=== PATIENT | female | born 1975 | race Caucasian/White ===

== ENCOUNTER 2023-12-26 11:08 | Outpatient (CLI) | payer OTHER, SELFPAY ==
[2023-12-26 16:24] LABS: Hematocrit 33.9 % (37.0-47.0); Hemoglobin 8.9 g/dL (12.0-15.0); Mean Corpuscular HGB Conc 26.3 g/dl (32-36); Mean Corpuscular Volume 72.3 fl (80-100); Mean Platelet Volume 9.8 fl (7.4-10.4); Platelet Count Result 370 k/mm3 (150-375); Red Blood Count 4.69 M/mm3 (4.2-5.4); Red Cell Distribution Width 19.3 % (11.5-14.5)
[2023-12-26 17:47] LABS: Alanine Aminotransferase 21 U/L (6-35); Albumin Level 4.1 g/dL (3.5-5.1); Alkaline Phosphatase 86 U/L (38-126); Anion Gap 8 mmol/L (8-16); Aspartate Amino Transferase 30 U/L (14-36); Bilirubin,Total 0.3 mg/dL (0.2-1.3); Blood Urea Nitrogen 19 mg/dL (7-17); Calcium 9.6 mg/dL (8.4-10.2); Carbon Dioxide 24 mmol/L (22-30); Chloride 106 mmol/L (98-107); Cholesterol 168 mg/dL (0-200); Estimated Glomerular Filt Rate > 60; Glucose 125 mg/dL (65-110); HDL Direct 51 mg/dL; Potassium 4.4 mmol/L (3.4-5.0); Sodium 138 mmol/L (137-145); Triglycerides 102 mg/dL (<150)
[2023-12-26 17:59] LABS: LDL Cholesterol Direct 91 mg/dL
[2023-12-26 18:22] LABS: Hemoglobin A1C 9.2 % (<5.7)
== END 2023-12-26 11:09 | disposition home or self-care (01) ==
LOC: ANHGOSHLAB 11:10
PROVIDERS: PCP Family Medicine; Visit Provider Family Medicine
DX: E11.8 Type 2 diabetes mellitus with unspecified complications (principal); E66.01 Morbid (severe) obesity due to excess calories; E78.5 Hyperlipidemia, unspecified; I10 Essential (primary) hypertension
CPT/HCPCS: 36415; 80053; 80061; 83036; 84443; 85027

== ENCOUNTER 2023-12-27 11:32 | Outpatient (CLI) | payer OTHER, SELFPAY ==
[2023-12-27 18:43] LABS: Basophils Absolute Auto 0.1 K/mm3 (0.0-0.1); Basophils Percent Auto 0.7 % (0.2-1.2); Eosinophils Absolute Auto 0.1 K/mm3 (0-0.3); Eosinophils Percent Auto 0.8 % (0-4.4); Hematocrit 33.7 % (37.0-47.0); Immature Granulocyte Absolute 0.03 K/mm3 (0.00-0.031); Immature Granulocyte Percent A 0.3 % (0-0.5); Lymphocytes Absolute Auto 1.92 K/mm3 (0.9-3.2); Lymphocytes Percent Auto 21.8 % (18.3-44.2); Mean Corpuscular HGB Conc 26.7 g/dl (32-36); Mean Corpuscular Hemoglobin 19.3 pg (26-34); Mean Corpuscular Volume 72.2 fl (80-100); Mean Platelet Volume 9.4 fl (7.4-10.4); Monocytes Absolute Auto 0.6 K/mm3 (0.1-0.6); Monocytes Percent Auto 6.8 % (2.6-8.5); Neutrophils Absolute Auto 6.1 K/mm3 (1.3-6.7); Neutrophils Percent Auto 69.6 % (45.5-73.1); Platelet Count Result 373 k/mm3 (150-375); Red Blood Count 4.67 M/mm3 (4.2-5.4); Red Cell Distribution Width 19.4 % (11.5-14.5); White Blood Count 8.8 K/mm3 (4.5-10.0)
[2023-12-27 19:09] LABS: Anisocytosis 1+ (NORMAL); Hypochromasia 1+ (NORMAL); Macrocytosis 1+ (NORMAL); Platelet Estimate Adequate (Adequate); Schistocytes None Seen (NORMAL)
[2023-12-27 19:33] LABS: Iron 35 ug/dL (37-170)
[2023-12-27 19:42] LABS: Percent Iron Saturation 7 % (20-50)
[2023-12-27 20:09] LABS: Ferritin 4.59 ng/mL (6.24-137)
== END 2023-12-27 11:33 | disposition home or self-care (01) ==
LOC: ANHGOSHLAB 11:35
PROVIDERS: PCP Family Medicine; Visit Provider Family Medicine
DX: D64.9 Anemia, unspecified (principal)
CPT/HCPCS: 36415; 82728; 83540; 83550; 85025

== ENCOUNTER 2024-03-05 00:41 | Day surgery (SDC) | payer OTHER, SELFPAY ==
[2024-02-16 11:08] VITALS: BMI 53.5
[2024-03-05 09:36] VITALS: BP 167/107; PULSE 102; RESP 18; TEMP 36.1; O2SAT 100
[2024-03-05] MEDS: LACTATED RINGERS 1,000 ML 150 ML IV CONT (09:54)
[2024-03-05 09:55] LABS: Glucose Point of Care 168 mg/dl (65-105)
--- NOTE | 2024-03-05 10:13 | WPDANESEPPF ---
Anes - Initial Pre Proc Eval Procedure: Operation Date: 03/05/24 11:00 Proposed Procedures p Screening Colonoscopy - Augustine Michaud MD Date/Time: 03/05/24 10:13 Surgeon: Augustine Michaud MD Pre Op Diagnosis: neoplasm screening Patient Data Age: 48 Gender: F Height: 1.7 m Weight: 153.2 kg Last Vital Signs Temp 36.1 C L 03/05/24 09:36 Pulse 102 H 03/05/24 09:36 Resp 18 03/05/24 09:36 BP 167/107 H 03/05/24 09:36 Pulse Ox 100 03/05/24 09:36 O2 Del Method Room Air 03/05/24 09:36 Allergies Allergy/AdvReac Type Severity Reaction Status Date / Time Penicillins Allergy Severe Anaphylactic Verified 03/05/24 09:35 Shock Home Medications Medication Instructions Recorded Confirmed Type metformin 1,000 mg tablet 1,000 mg PO BIDWMEAL 11/04/22 02/16/24 History glipizide 10 mg tablet 20 mg PO BID 11/15/22 02/16/24 History ferrous sulfate 325 mg (65 mg 325 mg PO BID #180 tabs 12/27/23 02/16/24 Rx iron) tablet insulin glargine 100 unit/mL 35 unit subcut QPM 02/06/24 02/16/24 History subcutaneous solution (Lantus U-100 Insulin) lisinopril 10 mg tablet 10 mg PO DAILY #90 tabs 02/06/24 02/16/24 Rx tirzepatide 5 mg/0.5 mL See Rx Instructions .Route 02/07/24 02/16/24 Rx subcutaneous pen injector .COMPLEX #4 mL (Mounjaro) Laboratory Tests 03/05/24 09:51 POC Capillary Glucose 168 H mg/dl (65-105) Patient hx anesthesia problems: post op nausea/vomiting Family hx anesthesia problems: none Results Review: All pre-operative results and documents have been reviewed as part of the pre-operative evaluation. [facility] Past Medical History Medical History Essential (primary) hypertension Hyperlipidemia, unspecified Morbid obesity Type 2 diabetes mellitus with unspecified complications Surgical History Surgical History H/O tubal ligation History of x2 elective and 1 emergency History of salpingectomy History of tonsillectomy Hx of appendectomy Family History Family History Father Malignant neoplasm of prostate Bone cancer Mother Diabetes mellitus Hypertension Depression Son Diabetes mellitus Celiac disease Grandparent Breast cancer Social History Social History Smoking packs per day: 1 Smoking cigarettes per day: 20.0 Years smoked: 25 Smoking pack-years: 25.00 Smoking status: Former smoker Tobacco type: e-cigarettes/vaping Additional smoking assessment comments: Currently vapes Alcohol intake: never Substance use: never Do You Feel Safe in your Home?: Yes Lack of Transportation: No Lack of Food: Never True Current Housing: I Have Housing Concerned About Future Housing: No Difficulty Paying Gas/Electric Bills: No Difficulty Paying for Meds: No Currently Unemployed: No Education: Associate Degree Difficulty w/ Childcare or Family Care: No Living arrangements: with family Spiritual care concerns: No Anes - Eval Final PreProcedure Day of Procedure 03/05/24 10:13 Patient weight: super morbidly obese Heart: regular rate and rhythm Lungs: decreased breath sounds Airway: Mallampati scale class II Neurological: alert and oriented Last oral intake: >/= 8 hours ASA classification: III Emergent: no Anesthetic plan: proceed Anesthesia type and monitoring: general GIVS and standard monitoring Results Review: All pre-operative results and documents have been reviewed as part of the pre-operative evaluation. Informed Consent: The patient's anesthetic plan and its attendant risks and benefits were discussed with the patient/family/POA. Questions were solicited and answers provided to the satisfaction of the patient/family/POA.
--- NOTE | 2024-03-05 11:04 | PM.HPGS ---
History of Present Illness History of Present Illness Consent: Risks, benefits, and alternatives have been discussed and questions answered. Patient agrees to proceed with procedure. Chief complaint: neoplasm screening Narrative: Madalyn Monson is a 48 year old female here for first screening colonoscopy Review of Systems Review of Systems: All systems reviewed & are unremarkable except as noted in HPI and below PMFSH Past Medical History Medical History Essential (primary) hypertension Hyperlipidemia, unspecified Morbid obesity Type 2 diabetes mellitus with unspecified complications Surgical History Surgical History H/O tubal ligation History of x2 elective and 1 emergency History of salpingectomy History of tonsillectomy Hx of appendectomy Family History Family History Father Malignant neoplasm of prostate Bone cancer Mother Diabetes mellitus Hypertension Depression Son Diabetes mellitus Celiac disease Grandparent Breast cancer Social History Social History Smoking packs per day: 1 Smoking cigarettes per day: 20.0 Years smoked: 25 Smoking pack-years: 25.00 Smoking status: Former smoker Tobacco type: e-cigarettes/vaping Additional smoking assessment comments: Currently vapes Alcohol intake: never Substance use: never Do You Feel Safe in your Home?: Yes Lack of Transportation: No Lack of Food: Never True Current Housing: I Have Housing Concerned About Future Housing: No Difficulty Paying Gas/Electric Bills: No Difficulty Paying for Meds: No Currently Unemployed: No Education: Associate Degree Difficulty w/ Childcare or Family Care: No Living arrangements: with family Spiritual care concerns: No Meds Home Medications and Allergies Home Medications Medication Instructions Recorded Confirmed Type metformin 1,000 mg tablet 1,000 mg PO BIDWMEAL 11/04/22 02/16/24 History glipizide 10 mg tablet 20 mg PO BID 11/15/22 02/16/24 History ferrous sulfate 325 mg (65 mg 325 mg PO BID #180 tabs 12/27/23 02/16/24 Rx iron) tablet insulin glargine 100 unit/mL 35 unit subcut QPM 02/06/24 02/16/24 History subcutaneous solution (Lantus U-100 Insulin) lisinopril 10 mg tablet 10 mg PO DAILY #90 tabs 02/06/24 02/16/24 Rx tirzepatide 5 mg/0.5 mL See Rx Instructions .Route 02/07/24 02/16/24 Rx subcutaneous pen injector .COMPLEX #4 mL (Mounjaro) Allergies Allergy/AdvReac Type Severity Reaction Status Date / Time Penicillins Allergy Severe Anaphylactic Verified 03/05/24 09:35 Shock Vital Signs Vital Signs - 24 hr 03/05/24 09:36 Temperature 97 F L Pulse Rate 102 H Respiratory Rate 18 Blood Pressure 167/107 H Pulse Oximetry 100 Oxygen Delivery Room Air Exam Const: General: comfortable and no acute distress HENMT: Face/Nose/Sinus: Normal nares present Eyes: General: appearance normal, both eyes and all related structures Neck: Neck: no JVD Resp: Auscultation: clear to auscultation bilaterally Cardio: Rate: regular rate Rhythm: regular rhythm GI: Inspection: non-distended GI Palp: Yes Soft to palpation Skin: General skin exam: normal color Neuro: General: gait normal Speech: normal speech Extrem: General: normal to inspection Psych: Mental Status: mental status grossly normal Assessment and Plan Assessment and plan (1) Screening for colon cancer: Code(s): Z12.11 - Encounter for screening for malignant neoplasm of colon Status: Acute Assessment and Plan: colonoscopy
[2024-03-05 11:23] VITALS: BP 108/59; PULSE 93; RESP 22; O2SAT 100
[2024-03-05 11:33] VITALS: BP 133/71; PULSE 83; RESP 16; O2SAT 98
[2024-03-05 11:43] VITALS: BP 139/79; PULSE 82; RESP 12; O2SAT 100
== END 2024-03-05 11:48 | disposition home or self-care (01) ==
PROVIDERS: PCP Family Medicine; Visit Provider Internal Medicine Gastroenterology
PROC: 0DJD8ZZ Inspection of Lower Intestinal Tract, Via Natural or Artificial Opening Endoscopic (ICD-10-PCS; CPT 45378; principal; 2024-03-05 11:00)
DX: Z12.11 Encounter for screening for malignant neoplasm of colon (principal); D12.4 Benign neoplasm of descending colon; K64.8 Other hemorrhoids; I10 Essential (primary) hypertension; E78.5 Hyperlipidemia, unspecified; E11.8 Type 2 diabetes mellitus with unspecified complications; E66.9 Obesity, unspecified; Z68.43 Body mass index [BMI] 50.0-59.9, adult; Z79.84 Long term (current) use of oral hypoglycemic drugs; Z79.4 Long term (current) use of insulin; Z98.890 Other specified postprocedural states; Z87.891 Personal history of nicotine dependence; Z80.42 Family history of malignant neoplasm of prostate; Z80.8 Family history of malignant neoplasm of other organs or systems; Z80.3 Family history of malignant neoplasm of breast
CPT/HCPCS: 45385; 82948; 88305; J2704; J7120

== ENCOUNTER 2024-04-18 09:29 | Outpatient (CLI) | payer OTHER, SELFPAY ==
[2024-04-18 13:05] LABS: Alanine Aminotransferase 15 U/L (6-35); Albumin Level 4.3 g/dL (3.5-5.1); Alkaline Phosphatase 72 U/L (38-126); Anion Gap 11 mmol/L (4-12); Aspartate Amino Transferase 25 U/L (14-36); Bilirubin,Total 0.3 mg/dL (0.2-1.3); Blood Urea Nitrogen 17 mg/dL (7-17); Calcium 9.3 mg/dL (8.4-10.2); Carbon Dioxide 22 mmol/L (22-30); Chloride 108 mmol/L (98-107); Cholesterol 161 mg/dL (0-200); Estimated Glomerular Filt Rate > 60; Glucose 119 mg/dL (65-110); HDL Direct 44 mg/dL; Potassium 3.8 mmol/L (3.4-5.0); Sodium 141 mmol/L (137-145); Triglycerides 99 mg/dL (<150)
[2024-04-18 13:14] LABS: Iron 77 ug/dL (37-170)
[2024-04-18 13:16] LABS: LDL Cholesterol Direct 98 mg/dL
[2024-04-18 13:24] LABS: Percent Iron Saturation 20 % (20-50)
[2024-04-18 13:28] LABS: Hemoglobin A1C 6.8 % (<5.7)
[2024-04-18 13:43] LABS: Creatinine Urine 73.1 mg/dL
[2024-04-18 13:51] LABS: MALB Creatinine Ratio < 8.2 mg/g (0-30); Microalbumin Urine Random < 6.0 mg/L (0-16.7)
== END 2024-04-18 09:30 | disposition home or self-care (01) ==
LOC: ANHGOSHLAB 09:31
PROVIDERS: PCP Family Medicine; Visit Provider Nurse Practitioner
DX: E78.5 Hyperlipidemia, unspecified (principal); E11.8 Type 2 diabetes mellitus with unspecified complications; D64.9 Anemia, unspecified
CPT/HCPCS: 36415; 80053; 80061; 82043; 83036; 83540; 83550

== ENCOUNTER 2024-09-10 08:28 | Emergency (ER) | payer OTHER, SELFPAY ==
--- NOTE | ~2024-09-10 | XR_ITS ---
EXAMINATION: XR chest 2V DATE: 09/10/2024 08:53 INDICATION: Productive cough. TECHNIQUE: Frontal and lateral views of the chest were obtained. COMPARISON: Chest 2 views 03/26/2010 FINDINGS: There are airspace opacities in the lower lobes, left worse than right, consistent with pne umonia. No pleural effusion or pneumothorax. The heart size is normal. IMPRESSION: 1. Airspace opacities in the lower lobes, left worse than right, consistent with pneumonia. Reviewed, dictated and finalized at location [] GROUND INVESTIGATOR IMPRESSION: 1. Airspace opacities in the lower lobes, left worse than right, consistent wit h pneumonia.
--- NOTE | 2024-09-10 08:38 | ED_ITS ---
HPI - URI/Sore Throat General Chief Complaint: Upper Respiratory Infection Stated Complaint: coughing Time Seen by Provider: 09/10/24 08:38 Source: patient, RN notes reviewed and old records reviewed Mode of arrival: ambulatory Limitations: no limitations History of Present Illness HPI Narrative: patient presents with complaints of productive cough for 5 days. She reports fever at onset of illness. Has been taking Radha[place] cold and flu with good control of fever, but continues with the congested cough. She reports associated body aches, loss of energy. She denies any shortness of breath. Reports that her son has been sick with similar illness. She voices no other concerns or complaints right now. Related Data Allergies Allergy/AdvReac Type Severity Reaction Status Date / Time Penicillins Allergy Severe Anaphylactic Verified 09/10/24 08:31 Shock Review of Systems Review of Systems: All systems reviewed & are unremarkable except as noted in HPI and below Constitutional: Constitutional: Reports as per HPI, Reports no additional constitutional complaints, Reports body ache(s), Reports chills, Reports fever(s) and Reports lethargy ENT: Reports system reviewed and no additional complaints, except as documented Cardiovascular: Cardiovascular: Reports no additional cardiovascular complaints Respiratory: Respiratory: Reports as per HPI, Reports no additional respiratory complaints, Reports chest congestion and Reports cough Gastrointestinal: Gastrointestinal: Reports no additional gastrointestinal complaints PMFSH Past Medical History Medical History Essential (primary) hypertension Hyperlipidemia, unspecified Morbid obesity Type 2 diabetes mellitus with unspecified complications Surgical History Surgical History H/O tubal ligation History of x2 elective and 1 emergency History of salpingectomy History of tonsillectomy Hx of appendectomy Family History Family History Father Malignant neoplasm of prostate Bone cancer Mother Diabetes mellitus Hypertension Depression Son Diabetes mellitus Celiac disease Grandparent Breast cancer Social History Social History Smoking packs per day: 1 Smoking cigarettes per day: 20.0 Years smoked: 25 Smoking pack-years: 25.00 Smoking status: Former smoker Tobacco type: e-cigarettes/vaping Additional smoking assessment comments: Currently vapes Alcohol intake: never Substance use: never Do You Feel Safe in your Home?: Yes Lack of Transportation: No Lack of Food: Never True Current Housing: I Have Housing Concerned About Future Housing: No Difficulty Paying Gas/Electric Bills: No Difficulty Paying for Meds: No Currently Unemployed: No Education: Associate Degree Difficulty w/ Childcare or Family Care: No Living arrangements: with family Spiritual care concerns: No Comments At the time of my signature, I reviewed and agree with the nursing past medical, surgical, social, and family history. There is no relevant family history pertinent to the patient complaint. Exam Const: General: cooperative, no acute distress, alert and awake Orientation/consciousness: oriented to person, oriented to place and oriented to time HENMT: Head: normal to inspection Mouth: Yes moist mucous membranes Resp: Effort & Inspection: normal respiratory effort and able to speak in complete sentences Auscultation: clear to auscultation bilaterally, no crackles, no rales, no rhonchi, no wheezes and diminished lung sounds Cardio: Palpation: normal PMI Rate: regular rate Rhythm: regular rhythm Heart sounds: S1 normal heart sound present and S2 normal heart sound present Neuro: General: oriented to person, oriented to place and oriented to time Cranial nerves: Yes CN's II-XII intact bilaterally Psych: Appearance: grossly normal Thought process: Normal thought process present Insight: Good insight present (Psych) Judgement: Good judgement present (Psych) Course Course Level of Care: Express Care Visit Vital Signs Vital signs: Vital Signs Temperature 97.2 F L 09/10/24 08:39 Pulse Rate 92 09/10/24 08:39 Respiratory Rate 18 09/10/24 08:39 Blood Pressure 166/98 H 09/10/24 08:39 Pulse Oximetry 97 09/10/24 08:39 Oxygen Delivery Room Air 09/10/24 08:39 Temperature 97.2 F L 09/10/24 08:39 Pulse Rate 92 09/10/24 08:39 Respiratory Rate 18 09/10/24 08:39 Blood Pressure 166/98 H 09/10/24 08:39 Pulse Oximetry 97 09/10/24 08:39 Oxygen Delivery Room Air 09/10/24 08:39 Reviewed MDM - URI/Sore Throat MDM Narrative Medical decision making narrative: history, exam, x-ray consistent with pneumonia. Treat with doxycycline, a short burst of prednisone, albuterol. Patient follow with primary care provider, emergency department for new or worse symptoms. She is nontoxic appearing and in no distress. Discharge instructions reviewed with patient, as well as provided in writing per nursing staff. The instructions also include specific and strict return/GO TO THE ER as well as f/u information. All questions have been answered, and the patient deny any further questions with discharge and discharge plan. Some parts of this dictation were generated by voice recognition software and may contain typographical and/or grammatical inaccuracies. Differential Diagnosis Differential diagnosis: Likely sinusitis, viral infection and bronchitis Medical Records Attestation: I reviewed the patient's medical records. Imaging Data Attestation: I personally reviewed and interpreted this imaging study as follows: My impression: LLL pna Radiologist's impression: Patient: Madalyn Monson : 1975 MR#: [id number] Age: 49 Acct:[id number] Loc: [facility] ADM Date: 09/10/24Attending Dr: Ordering Physician: Faiza Hutchison FNP Date of Service: 09/10/24 Procedure(s): XR chest 2V Accession Number(s): [id number] cc: Faiza Hutchison FNP; Madalyn Murray APRN~ EXAMINATION: XR chest 2V DATE: 09/10/2024 08:53 INDICATION: Productive cough. TECHNIQUE: Frontal and lateral views of the chest were obtained. COMPARISON: Chest 2 views 03/26/2010 FINDINGS: There are airspace opacities in the lower lobes, left worse than right, consistent with pneumonia. No pleural effusion or pneumothorax. The heart size is normal. IMPRESSION: 1. Airspace opacities in the lower lobes, left worse than right, consistent with pneumonia. Reviewed, dictated and finalized at location [] TIC BIOLOGIST Dictated By: Chon Brunson MD 09/10/24 0858 Signed By: <Elec Discharge Plan Discharge Clinical Impression: Pneumonia Qualifiers: Pneumonia type: due to unspecified organism Laterality: left Lung location: lower lobe of lung Qualified Code(s): J18.9 - Pneumonia, unspecified organism Patient Disposition: Home, Self-Care Condition: Stable Instructions: Antibiotic Form, Community Acquired Pneumonia (ED) Additional Instructions: follow-up with primary care provider. Blood pressure is very elevated today. Please take all medications as prescribed. Emergency department for any new or worse symptoms Patient Language: Belarusian Prescriptions: New doxycycline hyclate 100 mg tablet 100 mg PO DAILY Qty: 20 0RF prednisone 50 mg tablet 50 mg PO DAILY Qty: 3 0RF albuterol sulfate [Ventolin HFA] 90 mcg/actuation HFA aerosol inhaler 2 puff inhalation QID PRN (Reason: shortness of breath or wheezing) Qty: 8.5 0RF No Action lisinopril 20 mg tablet 20 mg PO DAILY Qty: 90 1RF metformin 1,000 mg tablet 1,000 mg PO BIDWMEAL Qty: 180 1RF ferrous sulfate 325 mg (65 mg iron) tablet 325 mg PO BID Qty: 180 1RF glipizide 10 mg tablet 20 mg PO BID Qty: 180 1RF Mounjaro 12.5 mg/0.5 mL pen injector See Rx Instructions .ROUTE .COMPLEX Qty: 4 1RF Dose Instruction: INJECT 12.5MG SUBCUTANEOUSLY ONCE WEEKLY Rx Instructions: INJECT 12.5MG SUBCUTANEOUSLY ONCE WEEKLY Follow-up/Referrals: Madalyn Murray, PIP[employer] SUPERVISOR-C [Primary Care Provider] - 2 Weeks Stand Alone Forms: Work/School Release IP Time of Disposition: 09:08
[2024-09-10 08:39] VITALS: BP 166/98; PULSE 92; RESP 18; TEMP 36.2; O2SAT 97
== END 2024-09-10 09:09 | disposition home or self-care (01) ==
PROVIDERS: Emergency Provider Nurse Practitioner Family; PCP Nurse Practitioner
DX: J18.9 Pneumonia, unspecified organism (principal); F17.290 Nicotine dependence, other tobacco product, uncomplicated; I10 Essential (primary) hypertension; E11.9 Type 2 diabetes mellitus without complications; E78.5 Hyperlipidemia, unspecified; E66.01 Morbid (severe) obesity due to excess calories; Z68.42 Body mass index [BMI] 45.0-49.9, adult
CPT/HCPCS: 71046; 99213; G0463

== ENCOUNTER 2025-01-14 10:07 | Outpatient (CLI) | payer OTHER, SELFPAY ==
--- OUTSIDE RECORDS SUMMARY | 2025-01-14 11:40 | XMS_ITS | Referral Summary ---
Author Organization [facility] Address [address] [place] [address] Care Team Providers Care Licensed Mental Health Professional Name Role Phone Unavailable Primary Care Provider Unavailabl e Source Comments [facility],non-owned Affiliates and Associated Physician Practices is amultiple site organization consisting of ambulatory clinics and hospital sitesin [place], [place], [place] and [place]. This disclosure is being madepursuant to the Care Everywhere program and may not contain all information available regarding this patient. Last updated 18.[employer] [facility] Allergies Active Allergy Reactions Criticality Noted Date Comments Penicillins Urticaria Medium 05/15/2013 Hives on body, throat Medications * Be aware that medications may not be up to date on this document. Alwaysverify current medications with the patient. Medication Sig Dispensed Refills Start Date End Date Status insulin NPH (NOVOLIN N) injectionIndicatio ns:GDM Inject 10 Units subcutaneously 2 times daily. 10 units at HS and 10 units in am Indications: GDM Active Active Problems Problem Noted Date Diagnosed Date Gestational diabetes 05/18/2013 History of delivery, currently 04/24/2013 AMA (advanced maternal age) multigravida 35+ Obesity complicating peripregnancy, antepartum 0 04/24/2013 Encounter for routine screen ing for malformation using ultrasonics 04/24/2013 History of gestational diabe mirian in prior , currently 04/24/2013 Social History Tobacco Use Types Packs/Day Years Used Date Smoking Tobacco: Every Day Cigarettes Alcohol Use Standard Drinks/Week Comments No 0 (1 standard drink = 0.6 oz pur e alcohol) Sex and Gender Information Value Date Recorded Sex Assigned at Not on file Gender Identity Not on file Sexual Orientation Not on file Plan of Treatment Not on file MADALYN MONSON Personal/Family [address] [place] [address] MADALYN MONSON Personal/Family [address] [place] [address] MADALYN MONSON Personal/Family [address] [place] [address]
--- OUTSIDE RECORDS SUMMARY | 2025-01-14 11:40 | XMS_ITS | Clinical Summary ---
Author Organization [facility] Address [address] [place] [address] Care Team Providers Care Paper Tester Name Role Phone Unavailable Primary Care Provider Unavailabl e Source Comments [facility],non-owned Affiliates and Associated Physician Practices is amultiple site organization consisting of ambulatory clinics and hospital sitesin [place], [place], [place] and [place]. This disclosure is being madepursuant to the Care Everywhere program and may not contain all information available regarding this patient. Last updated 18.[facility] Allergies Active Allergy Reactions Criticality Noted Date [...] diabe mirian in prior , currently 04/24/2013 Family History Medical History Relation Name Comments Cancer Father Bone Diabetes Mother Relation Name Status Comments Father Mother Social History Tobacco Use Types Packs/Day Years Used Date Smoking Tobacco: Every Day Cigarettes Alcohol Use Standard Drinks/Week Comments No 0 (1 standard drink = 0.6 oz pur e alcohol) Sex and Gender Information Value Date Recorded Sex Assigned at Not on file Gender Identity Not on file Sexual Orientation Not on file Plan of Treatment Health Maintenance Due Date Last Done Comments COLOGUARD (AGES 45-75) - COL ON CA SCREENING 1975 COLON MONITORING 1975 COLONOSCOPY - COLON CA SCREENING 1975 CT COLONOGRAPHY - COLON CA SCREENING 1975 Colorectal Cancer Screening 1975 FIT - COLON CA SCREENING 1975 FLEX SIG - COLON CA SCREENING 1975 LIPID TESTING 1975 MAMMOGRAM 1975 PAP SMEAR 1975 HIV SCREENING 1990 HEPATITIS C SCREENING 04/03/1993 DTAP/TDAP/TD VACCINES (1 - Tdap) 1994 HEPATITIS B VACCINE (1 of 3 - 19+ 3-dose series) 1994 PNEUMOCOCCAL VACCINE (1 of 2 - PCV) 1994 COVID-19 VACCINE (1 - 2023-2 5 season) 2024 INFLUENZA VACCINE (#1) 2024 DEPRESSION SCREENING 10/31/2024 ZOSTER VACCINE (1 of 2) 2025 HIB VACCINE Aged Out No longer eligi ble based on patient's age to complete this topic HPV VACCINE Aged Out No longer eligi ble based on patient's age to complete this topic MENINGOCOCCAL (Group B) VACC INE SHARED DECISION-MAKING Aged Out No longer eligibl e based on patient's age to complete this topic MENINGOCOCCAL GROUPS A/C/Y/W VACCINE Aged Out No longer eligible b ased on patient's age to complete this topic MADALYN HOLT Personal/Family [address] [place] [address] MADALYN HOLT Personal/Family [address] [place] [address] MADALYN HOLT Personal/Family [address] [place] [address]
--- OUTSIDE RECORDS SUMMARY | 2025-01-14 11:40 | XMS_ITS | Patient Health Summary ---
Author Organization [facility] [employer] Address [address] [place] [address] Care Team Providers Care Superintendent Construction Name Role Phone Unavailable Primary Care Provider Unavailabl e Note from [facility],non-owned Affiliates and Associated Physician Practices is amultiple site organization consisting of ambulatory clinics and hospital sitesin [place], [place], [place] and [place]. This disclosure is being madepursuant to the Care Everywhere program and may not contain all information available regarding this patient. Last updated 18.[facility] [employer] Allergies * Penicillins(Urticaria) -Medium Criticality Medications * Be aware that medications may not be up to date on this document. Alwaysverify current medications with the patient. * insulin NPH (NOVOLIN N) injection Inject 10 Units subcutaneously 2 times daily. 10 units at HS and 10 units in am Indications: GDM Active Problems Problem Noted Date Diagnosed Date [...] on file Sexual Orientation Not on file Procedures * SONOGRAM - COMPLETE(Performed 05/18/2013) Performed for History of delivery, currently (HCC), AMA (advanced maternal age) multigravida 35+ (HCC), Obesity complicating peripregnancy, antepartum (HCC) * SONOGRAM - COMPLETE(Performed 04/27/2013) Performed for History of delivery, currently (HCC), AMA (advanced maternal age) multigravida 35+ (HCC), Obesity complicating peripregnancy, antepartum (HCC), Encounter for routine screening for malformation using ultrasonics, History of gestational diabetes in prior , currently ([facility] Results * SONOGRAM - COMPLETE (05/18/2013 12:20 PM CDT) Only the most recent of2 resultswithin the time period is included. Anatomical Region Laterality Modality Other 05/18/2013 12:2 0 PM CDT Narrative 05/18/2013 7:06 PM CDT [facility] [place] PHONE: FAX: Pat. Name: MADALYN HOLT Pat. No: [id number] Study Date: 05/18/2013 12:20pm , Age: 06 1975, 38 Pregnancies: 5, Para 2 Weight: 340 lb LMP: Unknown GA by 1st: 28w5d GA by US: 30w2d GA Selected: 28w5d (From Known E) ROLLY: 08/05/2013 Referring MD: TORY VELASQUEZ MD Electrical Engineering Drafting Officer: Rhonda Miller RDMS Hist/Ind: Complete Anatomy Morbid Obesity 2 Prior C-Sections Gestational Diabetes MEASUREMENTS & AGE GROWTH EVALUATION Measurement GA Range Srce %for GA Ratios ----- ---- ------- BPD 7.7 cm 30w5d (64v2k-26o3r) Hadl BPD 80% FL/BPD 0.77 (0.71 - 0.87) HC 28.0 cm 30w5d (39d7c-77j8v) Hadl HC 80% FL/AC 0.23 (0.20 - 0.24) AC 25.5 cm 29w5d (50t2q-81b7x) Hadl AC 70% HC/AC 1.10 (0.99 - 1.18) FL 5.9 cm 30w5d (54i5r-17u0t) Hadl FL 80% CI 0.78 (0.70 - 0.86) HL 5.0 cm 29w3d (65c7p-39v7h) Seb HL 61% GA for sonogram 30w2d (05z3b-44z0w) Weight Estimate: based on (HL,BPD,HC,AC,FL) Avg Weight: 1530 gm (2306-8718) Hadlo : 3lbs, 5oz Normal: 1264 gm (856-1824) Brenne Wt% 69% for 28.7 wks Heart Rate: 159 bpm Amniotic Fluid Index: 15.1cm (09.3-23.0) Q1: 6.0cm Q2: 1.7cm Q3: 4.2cm Q4: 3.3cm CLINICAL SUMMARY Study Number: 2 A terry fetus is identified in cephalic presentation. The measurements today are consistent with appropriate growth compared to previous examination. The ROLLY selected is based on prior ultrasound examination. The amniotic fluid volume is within normal limits. The placenta is anterior, Grade 2. No major malformations are seen. The patient was advised that ultrasound does not allow detection of all structural or chromosomal abnormalities. IMPRESSION: Single, live, IUP 28w5d Appropriate interval growth Normal amniotic fluid assessment RECOMMEND: Follow up ultrasound as clinically indicated. Thank you for allowing us the opportunity to care for your patient. Emre Cassidy MD <Electronic Signature> 05/18/2013 07:06pm Tory Velasquez MD [facility] ORDERABLES
[2025-01-14 13:57] LABS: Hematocrit 45.8 % (37.0-47.0); Mean Corpuscular HGB Conc 32.8 g/dl (32-36); Mean Corpuscular Hemoglobin 32.2 pg (26-34); Mean Corpuscular Volume 98.3 fl (80-100); Mean Platelet Volume 10.8 fl (7.4-10.4); Platelet Count Result 255 k/mm3 (150-375); Red Blood Count 4.66 M/mm3 (4.2-5.4); Red Cell Distribution Width 15.2 % (11.5-14.5); White Blood Count 6.4 K/mm3 (4.5-10.0)
[2025-01-14 15:02] LABS: MALB Creatinine Ratio < 22.2 mg/g (0-30); Microalbumin Urine Random < 6.0 mg/L (0-16.7)
[2025-01-14 16:08] LABS: Alanine Aminotransferase 14 U/L (6-35); Albumin Level 4.5 g/dL (3.5-5.1); Alkaline Phosphatase 101 U/L (38-126); Anion Gap 20 mmol/L (4-12); Aspartate Amino Transferase 21 U/L (14-36); Bilirubin,Total 0.5 mg/dL (0.2-1.3); Blood Urea Nitrogen 14 mg/dL (7-17); Calcium 9.6 mg/dL (8.4-10.2); Carbon Dioxide 16 mmol/L (22-30); Chloride 100 mmol/L (98-107); Cholesterol 225 mg/dL (0-200); Estimated Glomerular Filt Rate > 60; Glucose 452 mg/dL (65-110); HDL Direct 44 mg/dL; Potassium 4.3 mmol/L (3.4-5.0); Sodium 136 mmol/L (137-145); Triglycerides 262 mg/dL (<150)
[2025-01-14 16:19] LABS: LDL Cholesterol Direct 135 mg/dL
[2025-01-14 17:08] LABS: Vitamin D 25 Hydroxy 36.5 ng/mL
[2025-01-14 18:51] LABS: Hemoglobin A1C 10.8 % (<5.7)
== END 2025-01-14 10:08 | disposition home or self-care (01) ==
LOC: ANHGOSHLAB 10:09
PROVIDERS: PCP Family Medicine; Visit Provider Nurse Practitioner
DX: Z00.00 Encounter for general adult medical examination without abnormal findings (principal); E11.8 Type 2 diabetes mellitus with unspecified complications; E55.9 Vitamin D deficiency, unspecified; E78.5 Hyperlipidemia, unspecified; D64.9 Anemia, unspecified
CPT/HCPCS: 36415; 80053; 80061; 82043; 82306; 83036; 85027

== ENCOUNTER 2025-01-24 09:05 | Outpatient (CLI) | payer OTHER, SELFPAY ==
--- OUTSIDE RECORDS SUMMARY | 2025-01-24 09:35 | XMS_ITS | Clinical Summary ---
Author Organization [facility] Address [address] [place] [address] Care Team Providers Care Log Washer Name Role Phone Unavailable Primary Care Provider Unavailabl e Source Comments [facility] Abigail Stewart,non-owned Affiliates and Associated Physician Practices is amultiple site organization consisting of ambulatory clinics and hospital sitesin [place], [place], [place] and [place]. This disclosure is being madepursuant to the Care Everywhere program and may not contain all information available regarding this patient. Last updated 18.[facility] Abigail Stewart Allergies Active Allergy Reactions Criticality Noted Date [...] this topic MADALYN HOLT Personal/Family [address] [place] [address] MADALYN HOLT Personal/Family [address] [place] [address] MADALYN HOLT Personal/Family [address] [place] [address]
[2025-01-24 19:43] LABS: Alanine Aminotransferase 17 U/L (6-35); Albumin Level 3.7 g/dL (3.5-5.1); Alkaline Phosphatase 77 U/L (38-126); Anion Gap 14 mmol/L (4-12); Aspartate Amino Transferase 23 U/L (14-36); Bilirubin,Total 0.3 mg/dL (0.2-1.3); Blood Urea Nitrogen 16 mg/dL (7-17); Carbon Dioxide 28 mmol/L (22-30); Chloride 99 mmol/L (98-107); Estimated Glomerular Filt Rate > 60; Glucose 241 mg/dL (65-110); Potassium 3.8 mmol/L (3.4-5.0); Sodium 141 mmol/L (137-145)
[2025-01-24 20:38] LABS: Hemoglobin A1C 11.3 % (<5.7)
== END 2025-01-24 09:06 | disposition home or self-care (01) ==
LOC: ANHGOSHLAB 09:06
PROVIDERS: PCP Family Medicine; Visit Provider Nurse Practitioner
DX: E11.8 Type 2 diabetes mellitus with unspecified complications (principal)
CPT/HCPCS: 36415; 80053; 83036

== ENCOUNTER 2025-01-28 09:15 | Outpatient (CLI) | payer OTHER, SELFPAY ==
--- OUTSIDE RECORDS SUMMARY | 2025-01-28 09:57 | XMS_ITS | Clinical Summary ---
Author Organization [facility] [employer] Address [address] [place] [address] Care Team Providers Care Research Physicist Name Role Phone Unavailable Primary Care Provider Unavailabl e Source Comments [facility] [employer],non-owned Affiliates and Associated Physician Practices is amultiple site organization consisting of ambulatory clinics and hospital sitesin [place] and [place]. This disclosure is being madepursuant to the Care Everywhere program and may not contain all information available regarding this patient. Last updated 18.[facility] [employer] Allergies Active Allergy Reactions Criticality Noted Date [...] this topic MADALYN HOLT Personal/Family [address] [place] [address] MADALYN HOLT Personal/Family [address] [place] [address] MADALYN HOLT Personal/Family [address] [place] [address]
[2025-01-31 16:23] LABS: Glutamic acid decarboxylase AA >250 IU/mL (<5)
== END 2025-01-28 09:16 | disposition home or self-care (01) ==
LOC: ANHGOSHLAB 09:17
PROVIDERS: PCP Family Medicine; Visit Provider Family Medicine
DX: R73.09 Other abnormal glucose (principal); Z13.1 Encounter for screening for diabetes mellitus
CPT/HCPCS: 36415; 86337; 86341

== ENCOUNTER 2025-05-20 09:34 | Outpatient (CLI) | payer OTHER, SELFPAY ==
--- OUTSIDE RECORDS SUMMARY | 2025-05-20 09:40 | XMS_ITS | Clinical Summary ---
Author Organization [facility] [employer] Address [address] 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 This disclosure is being madepursuant to the Care Everywhere program and may not contain all information available regarding this patient. Last updated 18.[facility] [employer] Allergies Active Allergy Reactions Criticality Noted Date Comments Penicillins Urticaria Medium 05/15/2013 Hives on body, throat Medications * Be aware that medications may not be up to date on this document. Alwaysverify current medications with the patient. insulin NPH (NOVOLIN N) injectionIndic ations:GDM Inject 10 Units subcutaneously 2 times daily. 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 Gender Identity Not on file Sexual Orientation [...] SCREENING 1975 LIPID TESTING 1975 MAMMOGRAM 1975 HIV SCREENING 1990 HEPATITIS C SCREENING 04/03/1993 DTAP/TDAP/TD VACCINES (1 - Tdap) 1994 HEPATITIS B VACCINE (1 of 3 - 19+ 3-dose series) 1994 PNEUMOCOCCAL VACCINE 50+ (1 of 2 - PCV) 1994 PAP SMEAR 1996 COVID-19 VACCINE (1 - 2023-2 5 season) 2024 DEPRESSION SCREENING 10/31/2024 ZOSTER VACCINE (1 of 2) 2025 INFLUENZA VACCINE (#1) 2025 HIB VACCINE Aged Out No longer [...] on patient's age to complete this topic Insurance MEDICAID - [place] * Guarantor: MADALYN HOLT Account Type Relation to Patient Date of Phone Billing Address Personal/Family [address] [place] [address] SELF PAY NO INSURANCE Member Subscriber Plan / Payer (Ef fective for All Dates) Name:[place] R Member ID:Not on file Relation to Subscriber:Not on file Name:MADALYN HOLT Subscriber ID:Not on file (Home) Address: [address] [place] [address] Payer ID:Not on file Group ID:Not on file Type:Self Pay Address: [facility] * Guarantor: MADALYN HOLT Account Type Relation to Patient Date of Phone Billing Address Personal/Family [address] [place] [address] SELF PAY NO INSURANCE Member Subscriber Plan / Payer (Ef fective for All Dates) Name:Madalyn oHlt R Member ID:Not on file Relation to Subscriber:Not on file Name:MADALYN HOLT Subscriber ID:Not on file (Home) Address: [address] [place] [address] Payer ID:Not on file Group ID:Not on file Type:Self Pay Address: [facility] * Guarantor: MADALYN HOLT Account Type Relation to Patient Date of Phone Billing Address Personal/Family [address] [place] [address] SELF PAY NO INSURANCE Member Subscriber Plan / Payer (Ef fective for All Dates) Name:Madalyn Holt Member ID:Not on file Relation to Subscriber:Not on file Name:MADALYN HOLT Subscriber ID:Not on file (Home) Address: [address] [place] [address] Payer ID:Not on file Group ID:Not on file Type:Self Pay Address: [facility]
[2025-05-20 13:40] LABS: Alanine Aminotransferase 14 U/L (6-35); Albumin Level 4.0 g/dL (3.5-5.1); Alkaline Phosphatase 49 U/L (38-126); Anion Gap 7 mmol/L (4-12); Aspartate Amino Transferase 36 U/L (14-36); Bilirubin,Total 0.3 mg/dL (0.2-1.3); Blood Urea Nitrogen 19 mg/dL (7-17); Calcium 9.3 mg/dL (8.4-10.2); Carbon Dioxide 27 mmol/L (22-30); Chloride 105 mmol/L (98-107); Cholesterol 162 mg/dL (0-200); Estimated Glomerular Filt Rate > 60; Glucose 173 mg/dL (65-110); HDL Direct 61 mg/dL; Potassium 4.5 mmol/L (3.4-5.0); Sodium 139 mmol/L (137-145); Total Protein 7.1 g/dL (6.3-8.2); Triglycerides 88 mg/dL (<150)
[2025-05-20 13:42] LABS: Hematocrit 43.4 % (37.0-47.0); Hemoglobin 13.9 g/dL (12.0-15.0); Mean Corpuscular HGB Conc 32.0 g/dl (32-36); Mean Corpuscular Hemoglobin 32.0 pg (26-34); Mean Corpuscular Volume 100.0 fl (80-100); Platelet Count Result 248 k/mm3 (150-375); Red Blood Count 4.34 M/mm3 (4.2-5.4); White Blood Count 5.7 K/mm3 (4.5-10.0)
[2025-05-20 14:09] LABS: Thyroid Stimulating Hormone 1.390 uIU/mL (0.465-4.680)
[2025-05-20 14:27] LABS: Iron 76 ug/dL (37-170)
[2025-05-20 14:36] LABS: Percent Iron Saturation 26 % (20-50)
[2025-05-20 14:46] LABS: MALB Creatinine Ratio 26.9 mg/g (0-30)
[2025-05-20 15:11] LABS: Hemoglobin A1C 5.9 % (<5.7)
== END 2025-05-20 09:35 | disposition home or self-care (01) ==
LOC: ANHGOSHLAB 09:35
PROVIDERS: PCP Family Medicine; Visit Provider Nurse Practitioner
DX: Z00.00 Encounter for general adult medical examination without abnormal findings (principal); E11.8 Type 2 diabetes mellitus with unspecified complications; E55.9 Vitamin D deficiency, unspecified; D64.9 Anemia, unspecified
CPT/HCPCS: 36415; 80053; 80061; 82043; 82306; 83036; 83540; 83550; 84443; 85027